=== PATIENT | female | born 1985 | race Caucasian/White ===

== ENCOUNTER → 2017-04-20 | Outpatient (CLI) | payer BC ==
[2016-04-20 12:50] LABS: Glucose 3 Hour, Gest 137 mg/dL
== END | disposition home or self-care (01) ==
LOC: LABWHC1 08:33
PROVIDERS: ATTEND Obstetrics & Gynecology
DX: O99.810 Abnormal glucose complicating pregnancy (principal)
CPT/HCPCS: 36415; 82951; 82952

== ENCOUNTER 2017-10-09 18:38 | Emergency (ER) | payer BC ==
[2017-10-09] MEDS ORDERED: SODIUM CHLORIDE 0.9% 1,000 ML IV STA (19:30)
[2017-10-09] MEDS ORDERED: KETOROLAC 30 MG/ML 1 ML VIAL IVP STA (19:30)
[2017-10-09] MEDS ORDERED: ONDANSETRON 4 MG/2 ML VIAL IVP STA (19:30)
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
[2017-10-09 19:44] LABS: Basophils # (A) 0.1 k/uL (0-0.2); Basophils % (A) 1 %; Eosinophils # (A) 0.2 k/uL (0-0.7); Eosinophils % (A) 1 %; HCT 40.5 % (34.0-46.0); HGB 13.1 gm/dL (11.4-16.0); Lymphocytes # (A) 3.3 k/uL (1.0-4.8); Lymphocytes % (A) 23 %; MCHC 32.3 g/dL (31.0-37.0); MCV 89.7 fL (80.0-100.0); Monocytes # (A) 0.7 k/uL (0-1.0); Monocytes % (A) 5 %; Neutrophils # (A) 9.9 k/uL (1.3-7.7); Neutrophils % (A) 69 %; Platelet Count 283 k/uL (150-450); RBC 4.52 m/uL (3.80-5.40); RDW 14.8 % (11.5-15.5); WBC 14.5 k/uL (3.8-10.6)
[2017-10-09 19:55] LABS: ALT 51 U/L (9-52); AST 33 U/L (14-36); Albumin 4.4 g/dL (3.5-5.0); Alkaline Phosphatase 104 U/L (38-126); Amylase 47 U/L (30-110); Anion Gap 15 mmol/L; Blood Urea Nitrogen 17 mg/dL (7-17); Carbon Dioxide 23 mmol/L (22-30); Chloride 105 mmol/L (98-107); Glucose 103 mg/dL (74-99); Lipase 165 U/L (23-300); Potassium 3.9 mmol/L (3.5-5.1); Sodium 143 mmol/L (137-145); Total Bilirubin 0.4 mg/dL (0.2-1.3); Total Protein 8.1 g/dL (6.3-8.2)
[2017-10-09 20:29] LABS: Appearance,Urine Clear (Clear); Bilirubin,Urine Negative (Negative); Blood,Urine Negative (Negative); Color,Urine Colorless; Glucose,Urine (UA) Negative (Negative); Ketones,Urine Negative (Negative); Protein,Urine Negative (Negative); Specific Gravity,Urine 1.034 (1.001-1.035)
[2017-10-09 20:30] LABS: Leukocyte Esterase,Urine Negative (Negative); Nitrite,Urine Negative (Negative); Urobilinogen,Urine 0.2 mg/dL (<2.0)
--- NOTE | 2017-10-09 21:16 | XR ---
EXAMINATION TYPE: XR abdomen 2V DATE OF EXAM: 10/09/2017 CLINICAL HISTORY: Right-sided abdominal pain. TECHNIQUE: Single supine KUB image of the abdomen is obtained. COMPARISON: None. FINDINGS: Scattered gas is seen in non-distended small bowel loops. Gas and fecal material is seen in non-distended colon. There is no visceromegaly, pneumoperitoneum, or abnormal calcification appr eciated. The lung bases are clear and the osseous structures are intact. IMPRESSION: Overall nonobstructive bowel gas pattern.
[2017-10-09 21:39] VITALS: BP 122/74; PULSE 100; RESP 16; TEMP 97.8
== END 2017-10-09 22:03 | disposition home or self-care (01) ==
LOC: EC 18:38
DX: K80.50 Calculus of bile duct without cholangitis or cholecystitis without obstruction (principal); Z87.891 Personal history of nicotine dependence
CPT/HCPCS: 36415; 80053; 82150; 83605; 83690; 85025; 81003; 81025; 87086; 74019; 99284; 96374; 96375; 96361; J2405; J1885

== ENCOUNTER → 2018-01-27 | Day surgery (SDC) | payer BC ==
[2018-01-24 15:23] VITALS: BMI 44.1
[~2018-01-27] MED LIST: BUPIVACAINE (PF) 0.25% 30 ML VIAL SQ ONE; DEXAMETHASONE SOD PHOSPHATE 10 MG/ML 1 ML VIAL IV ONE; GLYCOPYRROLATE 0.2 MG/ML 2 ML VIAL ONE; HYDROcodone/APAP 5-325MG 1 EACH TAB PO ONE; HYDROcodone/APAP 5-325MG 1 EACH TAB PO PRN; KETOROLAC 30 MG/ML 1 ML VIAL IVP ONE; LACTATED RINGERS 1,000 ML IV SCH; LIDOCAINE 1% 20 ML VIAL (10MG/ML) FOR IV START INTRADERMA ONE; LIDOCAINE 1% 20 ML VIAL (10MG/ML) FOR IV START INTRADERMA PRN; LIDOCAINE 1% INJ 10MG/ML (20 ML MDV) ONE; MIDAZOLAM 2 MG/2 ML VIAL IV PRN; MIDAZOLAM 2 MG/2 ML VIAL ONE; NALOXONE 0.4 MG/ML 1 ML VIAL IV PRN; NEOSTIGMINE 1 MG/ML 10 ML VIAL ONE; PROPOFOL 10 MG/ML 20 ML VIAL IV ONE; ROCURONIUM BROMIDE 10 MG/ML 10 ML VIAL IV ONE; SCOPOLAMINE 1.5MG/72HR PATCH TRANSDERM ONE; SUCCINYLCHOLINE CHLORIDE 100 MG/5 ML SYR IV ONE; ceFAZolin IN SWFI 2 GM/20 ML SYRINGE IVP ONE; fentaNYL (PF) 50 MCG/ML 2 ML AMP ONE
[2018-01-27 08:27] VITALS: RESP 16
[2018-01-27] MEDS: ONDANSETRON 4 MG/2 ML VIAL IVP ONE ×2 (08:56→10:57)
[2018-01-27] MEDS: HEPARIN SODIUM,PORCINE 5,000 UNIT/ML 1 ML VIAL SQ ONE ×2 (08:57→08:59)
[2018-01-27 10:40] VITALS: TEMP 96.9
--- NOTE | 2018-01-27 10:48 | P.OP ---
Date of Procedure: 01/27/18 Procedure(s) Performed: PREOPERATIVE DIAGNOSIS: Chronic cholecystitis POSTOPERATIVE DIAGNOSIS: Same PROCEDURE: Laparoscopic cholecystectomy SURGEON: Shaq EBL: Minimal see anesthesia record ANESTHESIA: Gen. COMPLICATIONS: None OPERATIVE PROCEDURE: The patient was brought and placed on the operating room table in the supine position. The patient was placed under general anesthesia at that time. The abdomen was prepped and draped in the usual sterile fashion. A small vertical infraumbilical incision was made. The patient had a small moderate-sized umbilical hernia that was left alone at this time. The fascia was grasped with the Patricio forceps. The fascia was retracted anteriorly. The Veress needle was advanced into the peritoneal cavity. The saline drop test was normal. Insufflation took place up to 15 mmHg. A 5 mm optical trocar was advanced and the peritoneal cavity. The abdominal cavity revealed loose flimsy adhesions scattered throughout. There were more dense adhesions present in the umbilical location. There was also some omentum present within the umbilical hernia sac. The trocar placement was in an area devoid of adhesions. Most of these adhesions in the upper abdomen were able to be lysed using blunt dissection. 2 additional 5 mm trochars were placed in the right upper quadrant under direct visualization. A 10 mm trocar was advanced into the epigastric incision site. The gallbladder was retracted superiorly and laterally. The peritoneum overlying the infundibulum was bluntly dissected. The patient's cystic duct was visualized. The junction between the cystic duct common and hepatic duct was identified. The cystic duct was then divided after placement of 3 10 mm clips on the patient's side and one on the specimen side. The cystic artery was identified and clipped as well. A small vessel was seen along the gallbladder fossa and clipped as well. The gallbladder was then removed from the liver bed using electrocautery. The gallbladder was then removed from the epigastric trocar site with an Endo Catch bag. The gallbladder fossa was irrigated with saline. There was no evidence of any bleeding or biliary drainage seen. The trochars were then removed. The fascia at the 10 millimeter site was closed using a [id number] 0 Vicryl stitch. The skin at all 4 sites was closed using a 4-0 Monocryl stitch. At the end of this procedure the sponge and needle counts were correct. DISPOSITION: Stable to the recovery room
[2018-01-27] MEDS: MORPHINE SULFATE 4 MG/ML SYRINGE IV PRN ×2 (11:07→11:12)
[2018-01-27 12:48] VITALS: BP 101/65; PULSE 88
== END ==
LOC: OR 07:21
PROVIDERS: ATTEND Surgery
DX: K80.10 Calculus of gallbladder with chronic cholecystitis without obstruction (principal); K42.9 Umbilical hernia without obstruction or gangrene; K66.0 Peritoneal adhesions (postprocedural) (postinfection); Z79.2 Long term (current) use of antibiotics; Z79.891 Long term (current) use of opiate analgesic; Z79.899 Other long term (current) drug therapy; I51.9 Heart disease, unspecified; M79.7 Fibromyalgia; Z87.442 Personal history of urinary calculi
CPT/HCPCS: 81025; 88304; 47562; J2250; J2270; J1644; J1100; J2710; J2405; J2001; J3010; J1885; J0330; J2704; J0690

== ENCOUNTER → 2018-02-08 | Outpatient (CLI) | payer BC ==
[2018-02-08 17:39] LABS: Basophils # (A) 0.1 k/uL (0-0.2); Basophils % (A) 1 %; Eosinophils # (A) 0.3 k/uL (0-0.7); Eosinophils % (A) 3 %; HCT 42.1 % (34.0-46.0); HGB 13.5 gm/dL (11.4-16.0); Lymphocytes # (A) 2.9 k/uL (1.0-4.8); Lymphocytes % (A) 28 %; MCH 28.8 pg (25.0-35.0); MCHC 32.1 g/dL (31.0-37.0); MCV 89.8 fL (80.0-100.0); Mean Platelet Volume 6.9; Monocytes # (A) 0.7 k/uL (0-1.0); Monocytes % (A) 6 %; Neutrophils # (A) 6.4 k/uL (1.3-7.7); Neutrophils % (A) 60 %; Platelet Count 277 k/uL (150-450); RBC 4.69 m/uL (3.80-5.40); WBC 10.6 k/uL (3.8-10.6)
[2018-02-08 18:06] LABS: ALT 470 U/L (9-52); AST 158 U/L (14-36); Albumin 4.4 g/dL (3.5-5.0); Alkaline Phosphatase 189 U/L (38-126); Anion Gap 16 mmol/L; Blood Urea Nitrogen 12 mg/dL (7-17); Calcium 9.9 mg/dL (8.4-10.2); Carbon Dioxide 22 mmol/L (22-30); Chloride 105 mmol/L (98-107); Glucose 89 mg/dL (74-99); Potassium 4.3 mmol/L (3.5-5.1); Sodium 143 mmol/L (137-145); Total Protein 7.7 g/dL (6.3-8.2)
== END | disposition home or self-care (01) ==
LOC: LABWHC1 17:07
PROVIDERS: ATTEND Surgery
DX: K81.0 Acute cholecystitis (principal)
CPT/HCPCS: 36415; 80053; 85025

== ENCOUNTER → 2018-02-14 | Outpatient (CLI) | payer BC ==
[2018-02-14 15:52] LABS: ALT 94 U/L (9-52); AST 31 U/L (14-36); Albumin 4.1 g/dL (3.5-5.0); Alkaline Phosphatase 98 U/L (38-126); Anion Gap 13 mmol/L; Blood Urea Nitrogen 13 mg/dL (7-17); Calcium 9.7 mg/dL (8.4-10.2); Carbon Dioxide 25 mmol/L (22-30); Chloride 106 mmol/L (98-107); Glucose 85 mg/dL (74-99); Potassium 4.4 mmol/L (3.5-5.1); Sodium 144 mmol/L (137-145); Total Bilirubin 0.5 mg/dL (0.2-1.3); Total Protein 7.1 g/dL (6.3-8.2)
== END | disposition home or self-care (01) ==
LOC: LABWHC1 14:58
PROVIDERS: ATTEND Surgery
DX: K80.50 Calculus of bile duct without cholangitis or cholecystitis without obstruction (principal)
CPT/HCPCS: 36415; 80053

== ENCOUNTER 2019-01-17 15:54 | Emergency (ER) | payer OTHER, BC ==
[2019-01-17 16:10] VITALS: RESP 18
[2019-01-17 16:47] LABS: Appearance,Urine Clear (Clear); Bilirubin,Urine Negative (Negative); Blood,Urine Negative (Negative); Color,Urine Colorless; Glucose,Urine (UA) Negative (Negative); Ketones,Urine Negative (Negative); Leukocyte Esterase,Urine Negative (Negative); Nitrite,Urine Negative (Negative); PH, Urine 5.5 (5.0-8.0); Protein,Urine Negative (Negative); Specific Gravity,Urine 1.002 (1.001-1.035); Urobilinogen,Urine <2.0 mg/dL (<2.0)
[2019-01-17] MEDS ORDERED: SODIUM CHLORIDE 0.9% 1,000 ML IV STA ×2 (16:51)
[2019-01-17] MEDS ORDERED: KETOROLAC 30 MG/ML 1 ML VIAL IVP STA (16:51)
[2019-01-17 17:23] LABS: Basophils # (A) 0.1 k/uL (0-0.2); Basophils % (A) 1 %; Eosinophils # (A) 0.2 k/uL (0-0.7); Eosinophils % (A) 2 %; HCT 39.5 % (34.0-46.0); HGB 12.6 gm/dL (11.4-16.0); Lymphocytes % (A) 32 %; MCH 28.2 pg (25.0-35.0); MCHC 31.9 g/dL (31.0-37.0); MCV 88.6 fL (80.0-100.0); Mean Platelet Volume 7.6; Monocytes # (A) 0.6 k/uL (0-1.0); Monocytes % (A) 5 %; Neutrophils # (A) 7.2 k/uL (1.3-7.7); Neutrophils % (A) 58 %; Platelet Count 323 k/uL (150-450); RBC 4.46 m/uL (3.80-5.40); RDW 13.4 % (11.5-15.5); WBC 12.5 k/uL (3.8-10.6)
[2019-01-17 17:39] LABS: ALT 38 U/L (9-52); AST 33 U/L (14-36); Albumin 4.5 g/dL (3.5-5.0); Alkaline Phosphatase 75 U/L (38-126); Amylase 46 U/L (30-110); Anion Gap 10 mmol/L; Blood Urea Nitrogen 11 mg/dL (7-17); Calcium 9.4 mg/dL (8.4-10.2); Carbon Dioxide 24 mmol/L (22-30); Chloride 106 mmol/L (98-107); Glucose 85 mg/dL (74-99); Lipase 107 U/L (23-300); Sodium 140 mmol/L (137-145); Total Bilirubin 0.6 mg/dL (0.2-1.3)
[2019-01-17 17:57] VITALS: BP 122/84; PULSE 64; TEMP 97.4
[2019-01-17] MEDS ORDERED: PHENAZOPYRIDINE 200 MG TAB PO STA (17:58)
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
--- NOTE | 2019-01-17 19:09 | CT ---
EXAMINATION TYPE: CT abdomen pelvis wo con DATE OF EXAM: 01/17/2019 COMPARISON: HISTORY: Pain and burning with urination. recent UTI CT DLP: 1151 mGycm Automated exposure control for dose reduction was used. TECHNIQUE: Helical acquisition of images was performed from the lung bases through the pelvis. FINDINGS: Within the limitations of noncontrast CT the following observations are made: LUNG BASES: No significant abnormality is appreciated. LIVER/GB: No significant abnormality is appreciated. PANCREAS: No significant abnormality is seen. SPLEEN: No significant abnormality is seen. ADRENALS: No significant abnormality is seen. KIDNEYS, URETERS, BLADDER: There is mild/moderate right-sided hydronephrosis with mild/moderate right hydroureter down to a 5 mm distal right ureteral calcification, located 2 cm proximal to the right u reterovesical junction. Right lower pole 2 mm nonobstructing calcification also noted. PERITONEAL CAVITY: Negative for pneumoperitoneum or peritoneal fluid. RETROPERITONEAL ADENOPATHY: None visualized REPRODUCTIVE ORGANS: No significant abnormality is seen PELVIC ADENOPATHY: None visualized. OSSEOUS STRUCTURES: No significant abnormality is seen. BOWEL: No significant abnormality is seen. IMPRESSION: RIGHT-SIDED MILD-MODERATE OBSTRUCTIVE UROPATHY.
[2019-01-17] MEDS ORDERED: Acetaminophen-Codeine 300-30mg TAB PO STA (19:20)
[2019-01-17] MEDS ORDERED: ACET/COD 300 MG/30 MG STARTER PACK 6 TAB BTL PO STA (19:20)
[2019-01-17] MEDS ORDERED: ONDANSETRON 4 MG/2 ML VIAL IVP STA (19:20)
== END 2019-01-17 19:30 | disposition home or self-care (01) ==
LOC: EC 15:54
DX: N20.1 Calculus of ureter (principal); Z87.440 Personal history of urinary (tract) infections; Z87.891 Personal history of nicotine dependence; Z90.49 Acquired absence of other specified parts of digestive tract
CPT/HCPCS: 99284; 96365; 96375 ×2; 96361 ×2; 36415; 80053; 82150; 83690; 85025; 81003; 81025; 87086; 74176; J2405; J0696; J1885

== ENCOUNTER → 2019-04-14 | Outpatient (CLI) | payer OTHER, BC ==
[2019-04-14 23:30] LABS: Progesterone 0.3 ng/mL
== END | disposition home or self-care (01) ==
LOC: RADXRMAIN 14:43
PROVIDERS: ATTEND Obstetrics & Gynecology
DX: N97.0 Female infertility associated with anovulation (principal)
CPT/HCPCS: 82627; 82670; 83001; 83002; 84144; 84146; 84402

== ENCOUNTER → 2019-05-02 | Outpatient (CLI) | payer OTHER, BC | END | disposition home or self-care (01) | LOC: LABMAIN 18:52 | PROVIDERS: ATTEND Obstetrics & Gynecology | DX: Z53.9 Procedure and treatment not carried out, unspecified reason (principal) ==

== ENCOUNTER → 2020-04-23 | Outpatient (CLI) | payer OTHER ==
[2020-04-23 19:41] LABS: T4, Free (Free Thyroxine) 1.2 ng/dL (0.80-1.80)
== END | disposition home or self-care (01) ==
LOC: LABWHC1 12:22
PROVIDERS: ATTEND Obstetrics & Gynecology
DX: Z13.29 Encounter for screening for other suspected endocrine disorder (principal)
CPT/HCPCS: 36415; 84439; 84443; 84479

== ENCOUNTER → 2020-08-01 | Outpatient (CLI) | payer OTHER | END | disposition home or self-care (01) | LOC: LABWHC1 16:17 | PROVIDERS: ATTEND Obstetrics & Gynecology | DX: N91.2 Amenorrhea, unspecified (principal); R10.2 Pelvic and perineal pain | CPT/HCPCS: 36415; 84702 ==

== ENCOUNTER 2020-08-03 10:29 | Emergency (ER) | payer OTHER ==
[2020-08-03 10:39] VITALS: TEMP 97.9
[2020-08-03] MEDS ORDERED: ONDANSETRON 4 MG/2 ML VIAL IVP STA (11:03)
[2020-08-03] MEDS ORDERED: MORPHINE SULFATE 4 MG/ML SYRINGE IV STA (11:03)
[2020-08-03] MEDS ORDERED: SODIUM CHLORIDE 0.9% 1,000 ML IV STA ×2 (11:03)
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
[2020-08-03 11:38] LABS: Appearance,Urine Clear (Clear); Bilirubin,Urine Negative (Negative); Blood,Urine Negative (Negative); Color,Urine Yellow; Glucose,Urine (UA) Negative (Negative); Ketones,Urine Negative (Negative); Leukocyte Esterase,Urine Negative (Negative); Nitrite,Urine Negative (Negative); PH, Urine 5.5 (5.0-8.0); Protein,Urine Negative (Negative); Specific Gravity,Urine 1.022 (1.001-1.035); Urobilinogen,Urine <2.0 mg/dL (<2.0)
[2020-08-03 11:42] LABS: Basophils # (A) 0.1 k/uL (0-0.2); Basophils % (A) 1 %; Eosinophils # (A) 0.4 k/uL (0-0.7); Eosinophils % (A) 3 %; HCT 42.9 % (34.0-46.0); HGB 14.3 gm/dL (11.4-16.0); Lymphocytes # (A) 3.2 k/uL (1.0-4.8); Lymphocytes % (A) 28 %; MCH 29.9 pg (25.0-35.0); MCHC 33.3 g/dL (31.0-37.0); MCV 89.8 fL (80.0-100.0); Mean Platelet Volume 7.6; Monocytes # (A) 0.6 k/uL (0-1.0); Monocytes % (A) 5 %; Neutrophils # (A) 7.1 k/uL (1.3-7.7); Neutrophils % (A) 61 %; Platelet Count 286 k/uL (150-450); RBC 4.78 m/uL (3.80-5.40); RDW 13.1 % (11.5-15.5); WBC 11.6 k/uL (3.8-10.6)
[2020-08-03 11:44] LABS: ALT 22 U/L (4-34); AST 23 U/L (14-36); African American GFR (CKD) >90 (>60 ml/min/1.73 sqM); Albumin 4.1 g/dL (3.5-5.0); Alkaline Phosphatase 64 U/L (38-126); Amylase 37 U/L (30-110); Anion Gap 7 mmol/L; Blood Urea Nitrogen 14 mg/dL (7-17); Calcium 9.3 mg/dL (8.4-10.2); Carbon Dioxide 23 mmol/L (22-30); Chloride 109 mmol/L (98-107); Glucose 97 mg/dL (74-99); Lipase 80 U/L (23-300); Non-African American GFR(CKD) >90 (>60 ml/min/1.73 sqM); Potassium 4.2 mmol/L (3.5-5.1); Sodium 139 mmol/L (137-145); Total Bilirubin 0.4 mg/dL (0.2-1.3); Total Protein 7.6 g/dL (6.3-8.2)
[2020-08-03 11:48] LABS: INR 0.9 (<1.2); Partial Thromboplastin Time 23.5 sec (22.0-30.0); Prothrombin Time 9.8 sec (9.0-12.0)
[2020-08-03 12:00] LABS: HCG,Quantitative Serum <2.4 mIU/mL
--- NOTE | 2020-08-03 13:02 | US ---
EXAMINATION TYPE: US renals and bladder DATE OF EXAM: 08/03/2020 COMPARISON: NONE CLINICAL HISTORY: Right pain. right flank pain, history of kidney stones EXAM MEASUREMENTS: Right Kidney: 11.2 x 5.3 x 4.7 cm Left Kidney: 12.2 x 5.6 x 4.6 cm *Technical limitations due to patient's body habitus and overlying bowel content Right Kidney: no evidence of hydronephrosis Left Kidney: no evidence of hydronephrosis Bladder: not fully distended Bilateral Jets seen: no There is no evidence for hydronephrosis at this point in time. No nephrolithiasis is seen. No luis felipe s are identified. The urinary bladder is anechoic. Bilateral ureteral jets are seen. IMPRESSION: No distinct abnormality appreciated.
--- NOTE | 2020-08-03 13:03 | US ---
EXAMINATION TYPE: US transvaginal DATE OF EXAM: 08/03/2020 COMPARISON: NONE CLINICAL HISTORY: Right pain. right pelvic pain TECHNIQUE: Transvaginal (TV). Date of LMP: 07/09/20 EXAM MEASUREMENTS: Uterus: 9.0 x 3.8 x 5.2 cm Endometrial Stripe: 0.9 cm Right Ovary: 4.8 x 4.2 x 4.4 cm Left Ovary: unable to visualize 1. Uterus: Anteverted Nabothian cysts 2. Endometrium: appears wnl 3. Right Ovary: cystic area = 3.7 x 3.6 x 3.8cm 4. Left Ovary: Obscured by overlying bowel gas Spectral, color and waveform doppler imaging shows good arterial and venous flow within the right o vary; there is no evidence for ovarian torsion. 5. Bilateral Adnexa: wnl 6. Posterior cul-de-sac: wnl IMPRESSION: Right ovarian cyst may reflect functional ovarian cyst. Normal blood flow is identified.
[2020-08-03 13:29] VITALS: BP 114/72; PULSE 78; RESP 18
== END 2020-08-03 13:29 | disposition home or self-care (01) ==
LOC: EC 10:29
DX: N83.201 Unspecified ovarian cyst, right side (principal); Z90.49 Acquired absence of other specified parts of digestive tract; Z32.02 Encounter for pregnancy test, result negative
CPT/HCPCS: 36415; 80053; 82150; 83690; 85025; 85610; 85730; 81003; 84702; 93976; 76830; 76770; 99285; 96374; 96375; 96361 ×2; J2270; J2405

== ENCOUNTER 2020-08-14 18:34 | Inpatient (IN) | payer OTHER ==
[2020-08-14] MEDS ORDERED: ACETAMINOPHEN TAB 500 MG TAB PO STA (18:56)
[2020-08-14] MEDS ORDERED: ALBUTEROL HFA INHALER INHALATION STA (18:56)
[2020-08-14] MEDS ORDERED: SODIUM CHLORIDE 0.9% 1,000 ML IV STA (18:56)
[2020-08-14] MEDS ORDERED: IBUPROFEN 800 MG TAB PO STA (18:56)
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
[2020-08-14 19:31] LABS: Basophils # (A) 0.1 k/uL (0-0.2); Basophils % (A) 1 %; Eosinophils % (A) 1 %; HCT 43.5 % (34.0-46.0); HGB 13.8 gm/dL (11.4-16.0); Lymphocytes # (A) 1.6 k/uL (1.0-4.8); Lymphocytes % (A) 25 %; MCH 28.2 pg (25.0-35.0); MCHC 31.7 g/dL (31.0-37.0); MCV 88.8 fL (80.0-100.0); Mean Platelet Volume 7.8; Monocytes # (A) 0.4 k/uL (0-1.0); Monocytes % (A) 6 %; Neutrophils % (A) 65 %; Platelet Count 192 k/uL (150-450); RDW 13.2 % (11.5-15.5); WBC 6.2 k/uL (3.8-10.6)
--- NOTE | 2020-08-14 19:34 | XR ---
EXAMINATION TYPE: XR chest 1V portable DATE OF EXAM: 08/14/2020 COMPARISON: Chest x-ray July 30, 2016 HISTORY: Shortness of breath, congestion, and fever. Suspected covid 19 pneumonia. TECHNIQUE: Single AP portable frontal upright view of the chest is obtained. FINDINGS: Low lung volumes are redemonstrated. There is no definitive suspicious new focal air space opacity, pleural effusion, or pneumothorax seen. The cardiac silhouette size is stable and mildly en larged. The osseous structures are intact. IMPRESSION: Low lung volumes and mild cardiomegaly without new acute infiltrate clearly seen.
[2020-08-14 20:07] LABS: ALT 40 U/L (4-34); AST 49 U/L (14-36); African American GFR (CKD) >90 (>60 ml/min/1.73 sqM); Albumin 4.2 g/dL (3.5-5.0); Alkaline Phosphatase 62 U/L (38-126); Anion Gap 10 mmol/L; Blood Urea Nitrogen 12 mg/dL (7-17); C Reactive Protein 15.5 mg/L (<10.0); Calcium 8.8 mg/dL (8.4-10.2); Carbon Dioxide 22 mmol/L (22-30); Chloride 107 mmol/L (98-107); Glucose 117 mg/dL (74-99); LDH 631 U/L (313-618); Magnesium 1.7 mg/dL (1.6-2.3); Non-African American GFR(CKD) >90 (>60 ml/min/1.73 sqM); Potassium 3.7 mmol/L (3.5-5.1); Sodium 139 mmol/L (137-145); Total Bilirubin 0.4 mg/dL (0.2-1.3); Total Protein 7.8 g/dL (6.3-8.2)
[2020-08-14] MEDS ORDERED: SODIUM CHLORIDE 0.9% 1,000 ML IV ONE (21:36)
[2020-08-14] MEDS: ACETAMINOPHEN TAB 500 MG TAB PO PRN (22:04)
[2020-08-15] MEDS: ACETAMINOPHEN TAB 500 MG TAB PO PRN ×3 (06:21→22:24)
[2020-08-15] MEDS: ENOXAPARIN 40 MG/0.4 ML SYRINGE SQ SCH (08:04)
[2020-08-15 09:14] LABS: Ferritin 254.8 ng/mL (10.0-291.0)
[2020-08-15] MEDS: LEVOTHYROXINE 50 MCG TAB PO SCH (11:43)
[2020-08-15] MEDS ORDERED: REMDESIVIR 200 MG in SODIUM CHLORIDE 0.9% 250 ML IVPB ONE (17:00)
[2020-08-15] MEDS: ZINC SULFATE 220 MG CAP PO SCH (17:01)
[2020-08-15] MEDS: DEXAMETHASONE SOD PHOSPHATE 10 MG/ML 1 ML VIAL IV SCH (17:01)
[2020-08-15] MEDS: guaiFENesin-DM 100-10MG/5ML 10 ML CUP PO PRN (17:04)
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
[2020-08-16] MEDS: guaiFENesin-DM 100-10MG/5ML 10 ML CUP PO PRN ×3 (05:53→21:00)
[2020-08-16] MEDS: LEVOTHYROXINE 50 MCG TAB PO SCH (05:53)
--- NOTE | 2020-08-16 07:45 | XR ---
EXAMINATION TYPE: XR chest 1V portable DATE OF EXAM: 08/16/2020 CLINICAL HISTORY: Difficulty breathing progress study. Suspected covid pneumonia. TECHNIQUE: Single AP portable upright view of the chest is obtained. COMPARISON: Chest x-ray from 2 days earlier FINDINGS: Persistent low lung volumes with developing peripheral opacities bilaterally. No pleural e ffusion or pneumothorax seen bilaterally. Cardiac silhouette size stable and mildly enlarged. Osseous structures are intact. IMPRESSION: Low lung volumes with developing bilateral peripheral acute infiltrates correlates with h istory of covid 19 infection.
[2020-08-16] MEDS: ZINC SULFATE 220 MG CAP PO SCH (07:53)
[2020-08-16] MEDS: ENOXAPARIN 40 MG/0.4 ML SYRINGE SQ SCH (07:53)
[2020-08-16] MEDS: DEXAMETHASONE SOD PHOSPHATE 10 MG/ML 1 ML VIAL IV SCH (07:53)
[2020-08-16 07:59] LABS: Basophils # (A) 0.1 k/uL (0-0.2); Basophils % (A) 1 %; Eosinophils % (A) 0 %; HCT 40.3 % (34.0-46.0); HGB 13.1 gm/dL (11.4-16.0); Lymphocytes % (A) 18 %; MCH 28.8 pg (25.0-35.0); MCHC 32.4 g/dL (31.0-37.0); Mean Platelet Volume 7.9; Monocytes # (A) 0.3 k/uL (0-1.0); Monocytes % (A) 6 %; Neutrophils % (A) 72 %; Platelet Count 188 k/uL (150-450); RBC 4.52 m/uL (3.80-5.40); RDW 12.9 % (11.5-15.5); WBC 5.5 k/uL (3.8-10.6)
[2020-08-16 13:45] LABS: African American GFR (CKD) 129.2 (60.0-200.0); Albumin 4.1 g/dL (3.80-4.90); Albumin/Globulin Ratio 1.46 (1.60-3.17); Anion Gap 8.9 mmol/L (4.00-12.00); C Reactive Protein 2.8 mg/dL (0.0-0.8); Calcium 8.7 mg/dL (8.7-10.3); Carbon Dioxide 24.1 mmol/L (21.6-31.8); Globulin 2.8 g/dL (1.6-3.3); Non-African American GFR(CKD) 111.5 (60.0-200.0); Potassium 4.2 mmol/L (3.5-5.5); Total Bilirubin 0.2 mg/dL (0.3-1.2); Total Protein 6.9 g/dL (6.2-8.2)
[2020-08-16] MEDS: REMDESIVIR 100 MG in SODIUM CHLORIDE 0.9% 250 ML IVPB SCH (16:41)
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
--- NOTE | 2020-08-17 05:10 | PN ---
PROGRESS NOTE DATE OF SERVICE: 08/16/2020 REASON FOR FOLLOWUP: Acute COVID-19 infection. INTERVAL HISTORY: The patient is currently afebrile. The patient has been breathing comfortably on room air. The patient denies having any chest pain or shortness of breath. Minimal cough. No nausea, vomiting, abdominal pain and is overall feeling much better. PHYSICAL EXAMINATION: Blood pressure 123/72, pulse of 80, temperature of 97.8. She is 96% on room air. Description is a middle-aged female up in the bed in no distress. Respiratory system: Unlabored breathing, decreased intensity of breath sounds, no wheeze. Heart S1, S2. Regular rate and rhythm. Abdomen is soft, no tenderness. LABS: Hemoglobin 13.1, white count of 5.5. D-dimer is 0.41 and LDH is down to 304. CRP down to 2.8. DIAGNOSTIC IMPRESSION AND PLAN: Patient with acute COVID-19 infection in this patient who has shown overall clinical improvement. She is currently off oxygen. The patient to continue with dexamethasone, Lovenox and remdesivir. remans to be off oxygen and is doing well, may be able to go home. MMODL / IJN: [id number] /
[2020-08-17] MEDS: LEVOTHYROXINE 50 MCG TAB PO SCH (05:41)
[2020-08-17 07:04] LABS: Basophils # (A) 0.1 k/uL (0-0.2); Basophils % (A) 1 %; Eosinophils % (A) 0 %; HCT 40.1 % (34.0-46.0); HGB 13.2 gm/dL (11.4-16.0); Lymphocytes # (A) 2.1 k/uL (1.0-4.8); Lymphocytes % (A) 22 %; MCH 29.5 pg (25.0-35.0); MCV 89.5 fL (80.0-100.0); Mean Platelet Volume 8.1; Monocytes # (A) 0.8 k/uL (0-1.0); Monocytes % (A) 8 %; Neutrophils % (A) 66 %; Platelet Count 244 k/uL (150-450); RBC 4.48 m/uL (3.80-5.40); RDW 13.1 % (11.5-15.5); WBC 9.2 k/uL (3.8-10.6)
[2020-08-17] MEDS: guaiFENesin-DM 100-10MG/5ML 10 ML CUP PO PRN (07:56)
[2020-08-17] MEDS: DEXAMETHASONE SOD PHOSPHATE 10 MG/ML 1 ML VIAL IV SCH (07:57)
[2020-08-17] MEDS: ZINC SULFATE 220 MG CAP PO SCH (07:57)
[2020-08-17] MEDS: ENOXAPARIN 40 MG/0.4 ML SYRINGE SQ SCH (07:57)
[2020-08-17] MEDS ORDERED: ARTIFICIAL TEARS-HYPROMELLOSE DROPS 15 ML BTL BOTH EYES PRN (08:03)
[2020-08-17 09:50] LABS: African American GFR (CKD) 129.2 (60.0-200.0); Anion Gap 6.1 mmol/L (4.00-12.00); BUN/Creat Ratio 22.86 Ratio (12.00-20.00); Calcium 8.9 mg/dL (8.7-10.3); Carbon Dioxide 27.9 mmol/L (21.6-31.8); Non-African American GFR(CKD) 111.5 (60.0-200.0); Potassium 4.1 mmol/L (3.5-5.5)
[2020-08-17] MEDS: REMDESIVIR 100 MG in SODIUM CHLORIDE 0.9% 250 ML IVPB SCH (16:55)
--- NOTE | 2020-08-17 17:41 | P.PN ---
Subjective Progress Note Date: 08/16/20 Principal diagnosis: Acute COVID-19 viral infection 08/16/2020 Patient is seen and evaluated in room at bedside; resting comfortably in bed; denies any chest pain; reports shortness of breath with activity and cough Vital signs remained stable with a temperature of 97 Lab review shows a white blood count of 5.5, hemoglobin 13.1, d-dimer of 0.41 and downward trend; CRP is improved to 2.8 Patient has been started on Remdesivir and dexamethasone; continue with Lovenox and vitamins; does show overall improvement; plan to discharge once therapy is completed Objective - Vital Signs Vital signs: Vital Signs Temp 97.8 F 08/16/20 14:00 Pulse 88 08/16/20 14:00 Resp 16 08/16/20 14:00 BP 123/78 08/16/20 14:00 Pulse Ox 93 L 08/16/20 14:00 Intake & Output 08/16/20 08/16/20 08/17/20 06:59 18:59 06:59 Intake Total 200 Balance 200 Intake: Oral 200 Other: Voiding Method Toilet Toilet # Voids 1 # Bowel Movements 1 - Exam GENERAL DESCRIPTION: Middle-aged female lying in bed, no distress. No tachypnea or accessory muscle of respiration use. HEENT: Shows Pallor , no scleral icterus. Oral mucous membrane is dry. No pharyngeal erythema or thrush NECK: Trachea central, no thyromegaly. LUNGS: Unlabored breathing. Coarse present at the bases bilaterally. No wheeze or crackle. HEART: S1, S2, regular rate and rhythm. No loud murmur ABDOMEN: Soft, no tenderness , guarding or rigidity, no organomegaly EXTREMITIES: No edema of feet. SKIN: No rash, no masses palpable. NEUROLOGICAL: The patient is awake, alert, oriented x3, mood and affect normal. - Labs CBC & Chem 7: 08/17/20 06:35 08/17/20 06:35 Labs: Abnormal Lab Results - Last 24 Hours (Table) 08/16/20 Range/Units 07:11 Glucose 137 H (70-110) mg/dL Total Bilirubin 0.2 L (0.3-1.2) mg/dL AST 44 H (13-35) U/L ALT 51 H (8-44) U/L Lactate Dehydrogenase 304 H (120-246) U/L C-Reactive Protein 2.8 H (0.0-0.8) mg/dL Albumin/Globulin Ratio 1.46 L (1.60-3.17) g/dL Microbiology - Last 24 Hours (Table) 08/14/20 19:08 Blood Culture - Preliminary Blood No Growth after 24 hours Assessment and Plan Assessment: 1. COVID 19 viral infection - Patient has been started on REM; pharmacy is consulting; patient remains on dexamethasone, Lovenox and zinc sulfate; placed on droplet and respiratory isolation - ID on board and recommending to follow culture results and adjust medications as needed 2. Hypothyroidism; levothyroxin 50 MCG daily 3. Obesity; counseling done DVT prophylaxis; subcu Lovenox CODE STATUS; full code
--- NOTE | 2020-08-17 18:02 | PN ---
PROGRESS NOTE DATE OF SERVICE: 08/17/2020 REASON FOR FOLLOWUP: Acute COVID-19 pneumonia. INTERVAL HISTORY: The patient is currently afebrile. Patient is breathing better. Still sats are at around 93% on room air. Denies any chest pain. Minimal cough. No abdominal pain. No diarrhea. PHYSICAL EXAMINATION: Blood pressure 122/70 with a pulse of 81, temperature 98.1. She is 93% on room air. General description is a middle-aged female up in the bed in no distress. Respiratory system: Unlabored breathing, decreased intensity of breath sounds with no wheeze. Heart S1, S2. Regular rate and rhythm. Abdomen soft, no tenderness. LABS: Hemoglobin 13.1, white count 9.2, creatinine 0.7. Blood culture negative. DIAGNOSTIC IMPRESSION AND PLAN: Patient with acute COVID-19 pneumonia in this patient currently on Remdesivir, Decadron. To continue. Still mildly hypoxic and and monitor clinical course. MMODL / IJN: [id number] /
[2020-08-18 06:55] LABS: Basophils # (A) 0.1 k/uL (0-0.2); Basophils % (A) 1 %; Eosinophils % (A) 0 %; HCT 40.4 % (34.0-46.0); HGB 13.1 gm/dL (11.4-16.0); Lymphocytes # (A) 2.4 k/uL (1.0-4.8); Lymphocytes % (A) 23 %; MCH 29.1 pg (25.0-35.0); MCHC 32.5 g/dL (31.0-37.0); MCV 89.6 fL (80.0-100.0); Mean Platelet Volume 8.6; Monocytes # (A) 0.6 k/uL (0-1.0); Monocytes % (A) 6 %; Neutrophils # (A) 6.9 k/uL (1.3-7.7); Neutrophils % (A) 68 %; Platelet Count 260 k/uL (150-450); RBC 4.51 m/uL (3.80-5.40); RDW 12.9 % (11.5-15.5); WBC 10.2 k/uL (3.8-10.6)
[2020-08-18] MEDS: DEXAMETHASONE SOD PHOSPHATE 10 MG/ML 1 ML VIAL IV SCH (09:17)
[2020-08-18] MEDS: ENOXAPARIN 40 MG/0.4 ML SYRINGE SQ SCH (09:17)
[2020-08-18] MEDS: ZINC SULFATE 220 MG CAP PO SCH (09:17)
[2020-08-18] MEDS: LEVOTHYROXINE 50 MCG TAB PO SCH (09:17)
[2020-08-18 10:16] VITALS: RESP 18
[2020-08-18 12:27] LABS: African American GFR (CKD) 129.2 (60.0-200.0); Anion Gap 8.2 mmol/L (4.00-12.00); BUN/Creat Ratio 22.86 Ratio (12.00-20.00); Calcium 8.7 mg/dL (8.7-10.3); Carbon Dioxide 26.8 mmol/L (21.6-31.8); Non-African American GFR(CKD) 111.5 (60.0-200.0); Potassium 3.9 mmol/L (3.5-5.5)
[2020-08-18 13:52] VITALS: BP 97/65; PULSE 67; TEMP 98
--- NOTE | 2020-08-18 15:24 | P.PN ---
Subjective Progress Note Date: 08/18/20 Principal diagnosis: Covid pneumonia This is a continue progress note On a 35-year-old white female with Covid pneumonia. She is doing well on Remdesivir. No voiding difficulties. No significant nausea, vomiting or diarrhea. Objective - Vital Signs Vital signs: Vital Signs Temp 98.0 F 08/18/20 13:51 Pulse 67 08/18/20 13:51 Resp 18 08/18/20 13:51 BP 97/65 08/18/20 13:51 Pulse Ox 95 08/18/20 13:51 Intake & Output 08/17/20 08/18/20 08/18/20 18:59 06:59 18:59 Intake Total 982 340 Balance 982 340 Intake: Intake, IV Titration 250 Amount Remdesivir (Eua) 100 mg 250 In Sodium Chloride 0.9% 250 ml @ 250 mls/hr IVPB Q24H [facility] Rx#:[id number] Oral 732 340 Other: Voiding Method Toilet Toilet # Voids 1 - Constitutional General appearance: Present: cooperative, no acute distress. Absent: disheveled - EENT Eyes: Absent: abnormal pupil - Neck Neck: Absent: lymphadenopathy - Respiratory Respiratory: bilateral: CTA - Cardiovascular Rhythm: regular Heart sounds: normal: S1, S2 Abnormal Heart Sounds: Absent: S3 Gallop, S4 Gallop - Gastrointestinal General gastrointestinal: Present: soft. Absent: tenderness - Musculoskeletal Musculoskeletal: Absent: gait normal - Psychiatric Psychiatric: Present: A&O x's 3 - Labs CBC & Chem 7: 08/18/20 05:52 08/18/20 05:52 Labs: Abnormal Lab Results - Last 24 Hours (Table) 08/18/20 Range/Units 05:52 BUN/Creatinine Ratio 22.86 H (12.00-20.00) Ratio Microbiology - Last 24 Hours (Table) 08/14/20 19:08 Blood Culture - Preliminary Blood No Growth after 72 hours Assessment and Plan (1) Coronavirus infection Current Visit: Yes Status: Acute Code(s): B34.2 - CORONAVIRUS INFECTION, UNSPECIFIED SNOMED Code(s): 716202371 (2) Fever Current Visit: No Status: Acute Code(s): R50.9 - FEVER, UNSPECIFIED SNOMED Code(s): 782082343 Plan: I would continue current regimen of treatment. She is improving tremendously. Anticipate discharge in a.m. Check CBC and CMP in the a.m.
[2020-08-18] MEDS: REMDESIVIR 100 MG in SODIUM CHLORIDE 0.9% 250 ML IVPB SCH (15:40)
[2020-08-18 16:02] LABS: Basophils # (A) 0.2 k/uL (0-0.2); Basophils % (A) 2 %; Eosinophils # (A) 0.2 k/uL (0-0.7); Eosinophils % (A) 2 %; HCT 39.7 % (34.0-46.0); HGB 13.1 gm/dL (11.4-16.0); Lymphocytes # (A) 1.5 k/uL (1.0-4.8); Lymphocytes % (A) 14 %; MCH 29.2 pg (25.0-35.0); MCHC 32.9 g/dL (31.0-37.0); MCV 88.6 fL (80.0-100.0); Monocytes # (A) 0.4 k/uL (0-1.0); Monocytes % (A) 4 %; Neutrophils # (A) 8.5 k/uL (1.3-7.7); Neutrophils % (A) 77 %; Platelet Count 265 k/uL (150-450); RBC 4.48 m/uL (3.80-5.40); RDW 12.9 % (11.5-15.5)
--- NOTE | 2020-08-18 16:09 | PN ---
PROGRESS NOTE DATE OF SERVICE: . REASON FOR FOLLOWUP: Acute COVID-19 pneumonia. INTERVAL HISTORY: The patient is currently afebrile. The patient is breathing more comfortably. Denies having any chest pain or cough. No nausea, no vomiting, no diarrhea. O2 saturation 95%-96% on room air. PHYSICAL EXAMINATION: Blood pressure is 97/55, O2 saturation is 95%. General description is a middle-aged female up in the in no distress. RESPIRATORY SYSTEM: Unlabored breathing, decreased breath sounds, no wheeze. HEART: S1, S2. Regular rate and rhythm. ABDOMEN: Soft, no tenderness. LABS: Hemoglobin is 10.2, white count is 14.2, creatinine 0.7. IMPRESSION/PLAN: Acute COVID-19 pneumonia. She will get a dose of Remdesivir. She will be able to go home on oral dexamethasone and . She will receive close outpatient followup. MMODL / IJN: [id number] /
--- NOTE | 2020-08-18 16:17 | P.DS ---
Providers Date of admission: 08/14/20 21:37 Attending physician: Nam Murray Consults: 08/14/20 21:36 Consult Physician Routine Consulting Provider: Camacho Mason Consult Reason/Comments: covid Do you want consulting provider notified?: Yes Primary care physician: Nam Murray - Discharge Diagnosis(es) (1) Coronavirus infection Current Visit: Yes Status: Acute (2) Fever Current Visit: No Status: Acute Hospital Course: The patient is here because of Covid 19/coronavirus infection. The patient did quite well with given antiviral treatment. The patient will be discharged in stable condition on steroid taper Patient Condition at Discharge: Good Plan - Discharge Summary New Discharge Prescriptions: New dexAMETHasone [Hexadrol] 2 mg PO DAILY #18 tablet Zinc Sulfate [Orazinc] 220 mg PO DAILY #30 cap guaiFENesin-DM 100-10MG/5ML [Robitussin DM] 10 ml PO Q6H PRN ml PRN Reason: Cough Continue Levothyroxine Sodium [Synthroid] 50 mcg PO DAILY clomiPHENE CITRATE 50 mg PO DIRECTED Discharge Medication List Levothyroxine Sodium [Synthroid] 50 mcg PO DAILY 08/03/20 [History] clomiPHENE CITRATE 50 mg PO DIRECTED 08/14/20 [History] Zinc Sulfate [Orazinc] 220 mg PO DAILY #30 cap 08/18/20 [Rx] dexAMETHasone [Hexadrol] 2 mg PO DAILY #18 tablet 08/18/20 [Rx] guaiFENesin-DM 100-10MG/5ML [Robitussin DM] 10 ml PO Q6H PRN ml 08/18/20 [Rx] Follow up Appointment(s)/Referral(s): Nam Murray MD [Primary Care Provider] - 1 Week Discharge Disposition: HOME SELF-CARE
== END 2020-08-18 17:25 | disposition home or self-care (01) | DRG 177 ==
LOC: EC 18:34 → 4SSUR 21:37
PROVIDERS: ADMIT Family Medicine; ATTEND Family Medicine
PROC: XW033E5 Introduction of Remdesivir Anti-infective into Peripheral Vein, Percutaneous Approach, New Technology Group 5 (ICD-10-PCS; principal; 2020-08-14)
DX: U07.1 COVID-19 (principal); J12.89 Other viral pneumonia; Z68.42 Body mass index [BMI] 45.0-49.9, adult; R09.02 Hypoxemia; E03.9 Hypothyroidism, unspecified; E66.9 Obesity, unspecified; Z71.3 Dietary counseling and surveillance; Z79.890 Hormone replacement therapy; Z82.49 Family history of ischemic heart disease and other diseases of the circulatory system; Z83.3 Family history of diabetes mellitus; Z87.891 Personal history of nicotine dependence; Z90.49 Acquired absence of other specified parts of digestive tract
CPT/HCPCS: 36415; 71045; 80048; 80053; 82728; 83605; 83615; 83735; 84145; 85025; 85379; 86140; 87040; 93005; 94640; 96360; 99285

== ENCOUNTER 2021-07-25 12:25 | Emergency (ER) | payer OTHER ==
[2021-07-25 12:42] VITALS: RESP 20; TEMP 98
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
--- NOTE | 2021-07-25 13:53 | XR ---
Left shoulder. HISTORY: Pain. COMPARISON: None. TECHNIQUE: 3 views of left shoulder were obtained. FINDINGS: There is no fracture, dislocation, intraosseous or intra-articular abnormality. There is no radiopaq ue foreign body or abnormal soft tissue calcification. IMPRESSION: No significant abnormality seen.
[2021-07-25] MEDS ORDERED: HYDROcodone/APAP 5-325MG 1 EACH TAB PO STA (14:03)
[2021-07-25 14:54] VITALS: BP 142/74; PULSE 88
== END 2021-07-25 14:49 | disposition home or self-care (01) ==
LOC: EC 12:25
DX: M25.512 Pain in left shoulder (principal); Z87.891 Personal history of nicotine dependence
CPT/HCPCS: 81025; 99283

== ENCOUNTER → 2022-03-17 | Outpatient (CLI) | payer OTHER ==
[2022-03-17 18:13] LABS: MCV 90.3 fL (80.0-97.0); Mean Platelet Volume 10.9 fL (9.5-12.2); NRBC Per 100 WBC 0 /100 WBCS (0.0-0.0); Platelet Count 321 X 10*3/uL (140-440); RBC 4.65 X 10*6/uL (4.10-5.20); RDW 13.1 % (11.5-14.5); WBC 12.41 X 10*3/uL (4.50-10.00)
[2022-03-17 18:29] LABS: Prolactin 13.3 ng/mL (2.800-29.200)
[2022-03-17 18:40] LABS: African American GFR (CKD) 128.3 (60.0-200.0); Albumin 4.3 g/dL (3.8-4.9); Albumin/Globulin Ratio 1.3 (1.60-3.17); Anion Gap 11.6 mmol/L (10.00-18.00); BUN/Creat Ratio 17.57 Ratio (12.00-20.00); Blood Urea Nitrogen 12.3 mg/dL (9.0-27.0); Calcium 9.3 mg/dL (8.7-10.3); Carbon Dioxide 24.4 mmol/L (20.0-27.5); Globulin 3.3 g/dL (1.6-3.3); Non-African American GFR(CKD) 110.7 (60.0-200.0); Potassium 4.2 mmol/L (3.5-5.5); T4, Free (Free Thyroxine) 1.41 ng/dL (0.800-1.800); Total Bilirubin 0.4 mg/dL (0.30-1.20); Total Protein 7.6 g/dL (6.2-8.2)
[2022-03-17 19:18] LABS: ACTH 24.6 pg/mL (0.00-45.99)
== END | disposition home or self-care (01) ==
LOC: LABWHC1 14:16
PROVIDERS: ATTEND Internal Medicine Endocrinology, Diabetes & Metabolism
DX: R53.83 Other fatigue (principal)
CPT/HCPCS: 36415; 80053; 82024; 82533; 82607; 84146; 84439; 84443; 84481; 85027; 86376

== ENCOUNTER → 2022-04-26 | Outpatient (CLI) | payer OTHER ==
[2022-04-26 17:54] LABS: HCT 39.7 % (37.2-46.3); HGB 12.4 g/dL (12.0-15.0); MCH 28.5 pg (27.0-32.0); MCHC 31.2 g/dL (32.0-37.0); MCV 91.3 fL (80.0-97.0); Mean Platelet Volume 11.6 fL (9.5-12.2); NRBC Per 100 WBC 0 /100 WBCS (0.0-0.0); Platelet Count 307 X 10*3/uL (140-440); RBC 4.35 X 10*6/uL (4.10-5.20); RDW 13.3 % (11.5-14.5); WBC 10.52 X 10*3/uL (4.50-10.00)
[2022-04-26 18:53] LABS: ALT 21 U/L (8-44); AST 17 U/L (13-35); African American GFR (CKD) 121.5 (60.0-200.0); Albumin 4.1 g/dL (3.8-4.9); Albumin/Globulin Ratio 1.37 (1.60-3.17); Alkaline Phosphatase 69 U/L (41-126); BUN/Creat Ratio 15.85 Ratio (12.00-20.00); Blood Urea Nitrogen 11.6 mg/dL (9.0-27.0); Calcium 9.3 mg/dL (8.7-10.3); Carbon Dioxide 24.9 mmol/L (20.0-27.5); Chloride 105 mmol/L (96-109); Glucose 97 mg/dL (70-110); Non-African American GFR(CKD) 104.9 (60.0-200.0); Potassium 4.4 mmol/L (3.5-5.5); Sodium 139 mmol/L (135-145); Total Protein 7.1 g/dL (6.2-8.2)
[2022-04-26 23:15] LABS: ACTH 22.9 pg/mL (0.00-45.99)
== END | disposition home or self-care (01) ==
LOC: LABWHC1 11:51
PROVIDERS: ATTEND Internal Medicine Endocrinology, Diabetes & Metabolism
DX: R53.83 Other fatigue (principal)
CPT/HCPCS: 36415; 80053; 82024; 82533; 82607; 84146; 84443; 84480; 85027; 86376

== ENCOUNTER → 2022-06-04 | Outpatient (CLI) | payer OTHER | END | disposition home or self-care (01) | LOC: LABWHC1 16:11 | PROVIDERS: ATTEND Internal Medicine Endocrinology, Diabetes & Metabolism | DX: E03.8 Other specified hypothyroidism (principal) | CPT/HCPCS: 36415; 84443 ==

== ENCOUNTER → 2022-08-11 | Outpatient (CLI) | payer OTHER | END | disposition home or self-care (01) | LOC: LABWHC1 12:55 | PROVIDERS: ATTEND Internal Medicine Endocrinology, Diabetes & Metabolism | DX: E03.8 Other specified hypothyroidism (principal) | CPT/HCPCS: 36415; 84443 ==

== ENCOUNTER → 2022-09-25 | Outpatient (CLI) | payer OTHER ==
--- NOTE | 2022-09-25 08:33 | CT ---
EXAMINATION TYPE: CT abdomen pelvis wo con DATE OF EXAM: 09/25/2022 HISTORY: Calculus of kidney, frequency of urination CT DLP: 2841.3 mGycm. Automated Exposure Control for Dose Reduction was Utilized. TECHNIQUE: CT scan of the abdomen and pelvis is performed without oral or IV contrast. COMPARISON: CT abdomen and pelvis January 17, 2019 FINDINGS: Within the limitations of a non-contrast study, the following observations are made. LUNG BASES: No significant abnormality is appreciated. LIVER/GB: Liver is heterogeneously hypodense suggesting diffuse fatty infiltration. Cholecystectomy c lips are redemonstrated. PANCREAS: No significant abnormality is seen. SPLEEN: No significant abnormality is seen. ADRENALS: No significant abnormality is seen. KIDNEYS: There is 2 mm nonobstructing calculus lower pole left kidney coronal image 69. No right-side d nephrolithiasis. No hydronephrosis seen bilaterally. No intraluminal calculi in the bladder. There is persistent distal right ureter calculus axial image 148 measuring 6 mm in size right before UVJ, i f same stone as prior study has only minimally moved since prior. BOWEL: With normal-appearing appendix from cecum. No suspicious small or large bowel dilatation.. GENITAL ORGANS: Anteverted uterus. LYMPH NODES: No greater than 1cm abdominal or pelvic lymph nodes are appreciated. Prominent but subce ntimeter lymph nodes along the right ureter for reference axial image 107 is unchanged from prior kasey dy. Prominent but subcentimeter iliac chain and groin lymph nodes bilaterally are stable. OSSEOUS STRUCTURES: No significant abnormality is seen. OTHER: No significant additional abnormality is seen. IMPRESSION: There is 6 mm distal right ureter calculus redemonstrated without significant hydronephro sis.
== END | disposition home or self-care (01) ==
LOC: RADCTMAIN 07:48
PROVIDERS: ATTEND Family Medicine
DX: N20.2 Calculus of kidney with calculus of ureter (principal); R35.0 Frequency of micturition
CPT/HCPCS: 74176

== ENCOUNTER 2022-10-06 09:01 | Day surgery (SDC) | payer OTHER ==
[2022-10-05 10:11] VITALS: BMI 51.7
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
[~2022-10-06 09:01] MED LIST changes: +AMPICILLIN 1,000 MG in SODIUM CHLORIDE 0.9% 50 ML IVPB PRN; -BUPIVACAINE (PF) 0.25% 30 ML VIAL SQ ONE; -DEXAMETHASONE SOD PHOSPHATE 10 MG/ML 1 ML VIAL IV ONE; +GENTAMICIN 160 MG in SODIUM CHLORIDE 0.9% 100 ML IVPB PRN; -GLYCOPYRROLATE 0.2 MG/ML 2 ML VIAL ONE; -HYDROcodone/APAP 5-325MG 1 EACH TAB PO ONE; -HYDROcodone/APAP 5-325MG 1 EACH TAB PO PRN; -KETOROLAC 30 MG/ML 1 ML VIAL IVP ONE; -LACTATED RINGERS 1,000 ML IV SCH; -LIDOCAINE 1% 20 ML VIAL (10MG/ML) FOR IV START INTRADERMA ONE; -LIDOCAINE 1% 20 ML VIAL (10MG/ML) FOR IV START INTRADERMA PRN; -LIDOCAINE 1% INJ 10MG/ML (20 ML MDV) ONE; -MIDAZOLAM 2 MG/2 ML VIAL IV PRN; -MIDAZOLAM 2 MG/2 ML VIAL ONE; -NALOXONE 0.4 MG/ML 1 ML VIAL IV PRN; -NEOSTIGMINE 1 MG/ML 10 ML VIAL ONE; -PROPOFOL 10 MG/ML 20 ML VIAL IV ONE; -ROCURONIUM BROMIDE 10 MG/ML 10 ML VIAL IV ONE; -SCOPOLAMINE 1.5MG/72HR PATCH TRANSDERM ONE; -SUCCINYLCHOLINE CHLORIDE 100 MG/5 ML SYR IV ONE; -ceFAZolin IN SWFI 2 GM/20 ML SYRINGE IVP ONE; -fentaNYL (PF) 50 MCG/ML 2 ML AMP ONE
[2022-10-06] MEDS ORDERED: LACTATED RINGERS 1,000 ML IV ONE (09:50)
[2022-10-06] MEDS ORDERED: LIDOCAINE 1% (10MG/ML) FOR IV START INTRADERMA ONE (09:50)
[2022-10-06] MEDS ORDERED: ONDANSETRON 4 MG/2 ML VIAL ONE (09:56)
--- NOTE | 2022-10-06 10:00 | XR ---
EXAMINATION TYPE: XR KUB DATE OF EXAM: 10/06/2022 COMPARISON: 09/25/2022 HISTORY: Pain TECHNIQUE: One view abdominal series FINDINGS: The osseous structures are intact. The bowel gas pattern is nonspecific. There is a 4 mm calcification in the right UPJ. Punctate calcifications seen overlying the left kidne y by prior CT scan are not well seen on today's exam. There is a small calcification left hemipelvis measuring 3 mm which is indeterminate. IMPRESSION: 1. 4 mm right UVJ calcification.
[2022-10-06] MEDS ORDERED: DEXAMETHASONE SOD PHOSPHATE 4 MG/ML 1 ML VIAL IV ONE (10:06)
[2022-10-06] MEDS ORDERED: ONDANSETRON 4 MG/2 ML VIAL IVP ONE (10:06)
[2022-10-06 10:13] VITALS: RESP 16
[2022-10-06] MEDS ORDERED: MIDAZOLAM 2 MG/2 ML VIAL ONE (10:56)
[2022-10-06] MEDS ORDERED: fentaNYL (PF) 50 MCG/ML 2 ML AMP ONE (10:56)
[2022-10-06] MEDS ORDERED: LIDOCAINE 2% INJ 20 MG/ML (2 ML VIAL) ONE (10:56)
[2022-10-06] MEDS ORDERED: PROPOFOL 10 MG/ML 20 ML VIAL IV ONE (10:56)
[2022-10-06] MEDS ORDERED: SUCCINYLCHOLINE CHLORIDE 200 MG/10 ML VIAL IV ONE (10:56)
--- NOTE | 2022-10-06 11:42 | P.OP ---
Date of Procedure: 10/06/22 Preoperative Diagnosis: Right ureteral stone with obstruction Postoperative Diagnosis: Same Procedure(s) Performed: Cystoscopy, right ureteroscopy with laser lithotripsy and stone basketing Anesthesia: MELANIA Surgeon: Cordell Holloway Estimated Blood Loss (ml): 0 Pathology: other (Stone) Condition: stable Disposition: PACU Indications for Procedure: The patient is 37. She has a 4-5 mm distal ureteral stone causing pain due to obstruction. She wishes it out issues been attempting to get rid of it now for several weeks. She comes for right ureteroscopy laser lithotripsy. Stone is seen on KUB preoperatively Description of Procedure: Patient brought to the operative suite. Given general anesthesia. Placed lithotomy position with sterile prep and drape. Cystoscopy Foroblique lens and 21-Monegasque sheath identifies a normal urethra. She does have a cystocele. The ureters on the left is normal the right is somewhat edematous and bloody and. The stone is seen on fluoroscopy. The bladder is inspected and is normal. I passed the semirigid ureteroscope into the right ureter. The stone floats proximally the iliac vessels. With the 275 laser probe the stone was broken into tiny pieces and flushed and basketed out of the ureter. I inspect the ureter upon pullout and I do not feel the edema is enough to leave a stent. The bladder is drained. Stone fragments are collected. The patient is awakened and returned recovery room good condition. She tolerated the procedure well be discharged home upon recovery and found the office in one week.
[2022-10-06 11:50] VITALS: TEMP 97
[2022-10-06] MEDS ORDERED: HYDROmorphone 0.5 MG/0.5 ML SYRINGE IVP ONE (12:06)
--- NOTE | 2022-10-06 12:07 | FL ---
Intraoperative/procedural fluoroscopic services were provided. Total fluoroscopy time is 14 seconds w ith a total of 2 submitted images to PACS. Please see the operative/procedural note for further detai ls.
[2022-10-06] MEDS ORDERED: HYDROcodone/APAP 5-325MG 1 EACH TAB ONE (12:50)
[2022-10-06] MEDS ORDERED: HYDROcodone/APAP 5-325MG 1 EACH TAB PO ONE (12:51)
[2022-10-06 12:56] VITALS: PULSE 90
[2022-10-06 13:14] VITALS: BP 137/85
== END 2022-10-06 13:30 | disposition home or self-care (01) ==
LOC: OR 09:01
PROVIDERS: ATTEND Urology
DX: N20.1 Calculus of ureter (principal); E03.9 Hypothyroidism, unspecified; Z90.49 Acquired absence of other specified parts of digestive tract; Z87.891 Personal history of nicotine dependence; Z82.49 Family history of ischemic heart disease and other diseases of the circulatory system; Z83.3 Family history of diabetes mellitus; Z79.899 Other long term (current) drug therapy; Z79.890 Hormone replacement therapy
CPT/HCPCS: 81025; 82365; 74018; 52356; C1769; J2250; J0330; J1100; J2405; J3010; J1580; J0290; J2704; J1170; J2001

== ENCOUNTER → 2022-10-13 | Outpatient (CLI) | payer OTHER | END | disposition home or self-care (01) | LOC: LABWHC1 15:04 | PROVIDERS: ATTEND Internal Medicine Endocrinology, Diabetes & Metabolism | DX: E03.8 Other specified hypothyroidism (principal) | CPT/HCPCS: 36415; 84443 ==

== ENCOUNTER → 2023-01-10 | Outpatient (CLI) | payer OTHER ==
--- NOTE | 2023-01-11 08:37 | XR ---
EXAMINATION TYPE: XR spine complete AP and Lat DATE OF EXAM: 01/10/2023 COMPARISON: NONE HISTORY: Pain TECHNIQUE: AP and lateral views of the cervical, thoracic and lumbar spines FINDINGS: Cervical spine: Loss of normal cervical lordosis with mild disc space narrowing C5-C6. Very small yvon ateral cervical ribs. Thoracic spine: Pedicles are intact. Vertebral body heights and disc interspaces fairly well maintain ed with degenerative disc disease at T11-T12 and hypertrophic spurring anteriorly. Surgical clips inc identally noted in the gallbladder fossa. Lumbar spine: There is mild facet arthropathy L4-5 and L5-S1. Vertebral body heights and disc space m aintained. Degenerative changes in the lower thoracic spine with spurring. Pedicles are intact. IMPRESSION: IMPRESSION: 1. Mild degenerative disc disease C5-C6. 2. Moderate hypertrophic and degenerative changes T11-T12 3. Mild facet arthropathy L4-5 and L5-S1
== END | disposition home or self-care (01) ==
LOC: RADXRMAIN 15:02
PROVIDERS: ATTEND Student in an Organized Health Care Education/Training Program
DX: M50.322 Other cervical disc degeneration at C5-C6 level (principal); M47.814 Spondylosis without myelopathy or radiculopathy, thoracic region; M47.817 Spondylosis without myelopathy or radiculopathy, lumbosacral region
CPT/HCPCS: 72082

== ENCOUNTER 2023-01-20 16:42 | Emergency (ER) | payer OTHER ==
[2023-01-20 16:53] VITALS: TEMP 97.9
--- NOTE | 2023-01-20 17:23 | XR ---
EXAMINATION TYPE: XR chest 2V DATE OF EXAM: 01/20/2023 5:19 PM COMPARISON: Chest radiographs from 08/16/2020 TECHNIQUE: XR chest 2V Frontal and lateral views of the chest. CLINICAL INDICATION:Female, 37 years old with history of SOB; FINDINGS: Lungs/Pleura: There is no evidence of pleural effusion, focal consolidation, or pneumothorax. Pulmonary vascularity: Unremarkable. Heart/mediastinum: Cardiomediastinal silhouette is unremarkable. Musculoskeletal: No acute osseous pathology. IMPRESSION: No acute cardiopulmonary disease/process.
[2023-01-20] MEDS ORDERED: SODIUM CHLORIDE 0.9% 1,000 ML IV STA (17:30)
[2023-01-20] MEDS ORDERED: KETOROLAC 15 MG/ML 1 ML VIAL IVP STA (17:30)
[2023-01-20] MEDS ORDERED: ONDANSETRON 4 MG/2 ML VIAL IVP STA (17:30)
[2023-01-20 18:46] LABS: Basophils # (A) 0.1 k/uL (0-0.2); Basophils % (A) 0 %; Eosinophils # (A) 0.2 k/uL (0-0.7); Eosinophils % (A) 2 %; HCT 43.6 % (34.0-46.0); HGB 13.8 gm/dL (11.4-16.0); Lymphocytes # (A) 4.1 k/uL (1.0-4.8); Lymphocytes % (A) 30 %; MCH 28.1 pg (25.0-35.0); MCHC 31.6 g/dL (31.0-37.0); MCV 88.8 fL (80.0-100.0); Mean Platelet Volume 8.3; Monocytes # (A) 0.7 k/uL (0-1.0); Monocytes % (A) 5 %; Neutrophils # (A) 8.2 k/uL (1.3-7.7); Neutrophils % (A) 61 %; Platelet Count 328 k/uL (150-450); RBC 4.91 m/uL (3.80-5.40); RDW 13.1 % (11.5-15.5); WBC 13.4 k/uL (3.8-10.6)
[2023-01-20 19:01] LABS: ALT 28 U/L (4-34); AST 28 U/L (14-36); African American GFR (CKD) >90 (>60 ml/min/1.73 sqM); Albumin 4.3 g/dL (3.5-5.0); Alkaline Phosphatase 77 U/L (38-126); Anion Gap 10 mmol/L; Blood Urea Nitrogen 13 mg/dL (7-17); Calcium 9.4 mg/dL (8.4-10.2); Carbon Dioxide 24 mmol/L (22-30); Chloride 105 mmol/L (98-107); Glucose 104 mg/dL (74-99); Non-African American GFR(CKD) >90 (>60 ml/min/1.73 sqM); Potassium 4.4 mmol/L (3.5-5.1); Sodium 139 mmol/L (137-145); Total Bilirubin 0.6 mg/dL (0.2-1.3); Total Protein 8.1 g/dL (6.3-8.2)
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
[2023-01-20 21:17] LABS: INR 0.9 (<1.2); Prothrombin Time 9.8 sec (9.0-12.0)
[2023-01-20 21:21] LABS: Partial Thromboplastin Time 19.7 sec (22.0-30.0)
[2023-01-20 21:40] VITALS: BP 138/104; PULSE 86; RESP 18
== END 2023-01-20 21:39 | disposition home or self-care (01) ==
LOC: EC 16:42
DX: J06.9 Acute upper respiratory infection, unspecified (principal); E07.9 Disorder of thyroid, unspecified; Z79.890 Hormone replacement therapy; Z87.891 Personal history of nicotine dependence; Z90.49 Acquired absence of other specified parts of digestive tract; Z20.822 Contact with and (suspected) exposure to COVID-19
CPT/HCPCS: 36415; 93005; 85379; 80053; 84484; 85025; 85610; 85730; 87636; 71046; 99285; 96374; 96375; J2405; J1885

== ENCOUNTER → 2023-01-31 | Outpatient (CLI) | payer OTHER | END | disposition home or self-care (01) | LOC: LABWHC1 14:38 | PROVIDERS: ATTEND Internal Medicine Endocrinology, Diabetes & Metabolism | DX: E03.8 Other specified hypothyroidism (principal) | CPT/HCPCS: 36415; 84443 ==

== ENCOUNTER → 2023-05-02 | Outpatient (CLI) | payer OTHER | END | disposition home or self-care (01) | LOC: LABWHC1 14:33 | PROVIDERS: ATTEND Internal Medicine Endocrinology, Diabetes & Metabolism | DX: E03.8 Other specified hypothyroidism (principal) | CPT/HCPCS: 36415; 84443 ==

== ENCOUNTER → 2023-06-20 | Outpatient (CLI) | payer OTHER | END | disposition home or self-care (01) | LOC: LABWHC1 08:30 | PROVIDERS: ATTEND Obstetrics & Gynecology | DX: O00.90 Unspecified ectopic pregnancy without intrauterine pregnancy (principal); Z3A.00 Weeks of gestation of pregnancy not specified | CPT/HCPCS: 36415; 84702 ==

== ENCOUNTER → 2023-06-23 | Outpatient (CLI) | payer OTHER | END | disposition home or self-care (01) | LOC: LABWHC1 08:47 | PROVIDERS: ATTEND Obstetrics & Gynecology | DX: O00.90 Unspecified ectopic pregnancy without intrauterine pregnancy (principal); Z3A.00 Weeks of gestation of pregnancy not specified | CPT/HCPCS: 36415; 84702 ==

== ENCOUNTER → 2023-06-29 | Outpatient (CLI) | payer OTHER ==
[2023-06-29 19:40] LABS: Basophils # (A) 0.09 X 10*3/uL (0.00-0.10); Basophils % (A) 0.7 %; Eosinophils # (A) 0.25 X 10*3/uL (0.04-0.35); Eosinophils % (A) 2.1 %; HCT 42.6 % (37.2-46.3); HGB 13.2 d/dL (12.0-15.0); Lymphocytes # (A) 3.37 X 10*3/uL (0.90-5.00); Lymphocytes % (A) 27.6 %; MCH 28.1 pg (27.0-32.0); MCV 90.8 FL (80.0-97.0); Mean Platelet Volume 10.6 FL (9.5-12.2); Monocytes # (A) 1.12 X 10*3/uL (0.20-1.00); Monocytes % (A) 9.2 %; NRBC Per 100 WBC 0 X 10*3/uL (0.00-0.01); Neutrophils # (A) 7.33 X 10*3/uL (1.80-7.70); Neutrophils % (A) 60.2 %; Platelet Count 345 X 10*3/uL (140-440); RBC 4.69 X 10*6/uL (4.10-5.20); RDW 13.8 % (11.5-14.5); WBC 12.19 X 10*3/uL (4.50-10.00)
[2023-06-30 02:05] LABS: HCG,Quantitative Serum 7.5 mIU/mL (0.0-6.0)
== END | disposition home or self-care (01) ==
LOC: LABWHC1 14:40
PROVIDERS: ATTEND Internal Medicine Endocrinology, Diabetes & Metabolism
DX: O03.9 Complete or unspecified spontaneous abortion without complication (principal); E03.8 Other specified hypothyroidism; E55.9 Vitamin D deficiency, unspecified; E53.8 Deficiency of other specified B group vitamins; Z3A.00 Weeks of gestation of pregnancy not specified
CPT/HCPCS: 36415; 82306; 82607; 84443; 84702; 85025

== ENCOUNTER → 2023-07-06 | Outpatient (CLI) | payer OTHER ==
--- NOTE | 2023-07-06 15:34 | XR ---
EXAMINATION TYPE: XR KUB DATE OF EXAM: 07/06/2023 COMPARISON: NONE HISTORY: Bladder spasms TECHNIQUE: One view abdominal series FINDINGS: The osseous structures are intact. The bowel gas pattern is nonspecific. Mild arthropathy of the hip . SI joints patent. Surgical clips gallbladder fossa. Calcifications pelvis are likely vascular IMPRESSION: 1. Nonspecific abdomen.
== END | disposition home or self-care (01) ==
LOC: RADXRMAIN 14:46
PROVIDERS: ATTEND Urology
DX: O00.90 Unspecified ectopic pregnancy without intrauterine pregnancy (principal); N20.0 Calculus of kidney; N32.89 Other specified disorders of bladder
CPT/HCPCS: 74018; 84702

== ENCOUNTER → 2023-10-31 | Outpatient (CLI) | payer OTHER | END | disposition home or self-care (01) | LOC: LABWHC1 14:47 | PROVIDERS: ATTEND Internal Medicine Endocrinology, Diabetes & Metabolism | DX: E03.8 Other specified hypothyroidism (principal) | CPT/HCPCS: 36415; 84443 ==

== ENCOUNTER → 2024-01-30 | Outpatient (CLI) | payer OTHER ==
[2024-01-31 03:04] LABS: HCT 40.7 % (37.2-46.3); HGB 12.8 g/dL (12.0-15.0); MCH 27.9 pg (27.0-32.0); MCHC 31.4 g/dL (32.0-37.0); MCV 88.7 FL (80.0-97.0); Mean Platelet Volume 10.9 FL (9.5-12.2); NRBC Per 100 WBC 0 X 10*3/uL (0.00-0.01); Platelet Count 309 X 10*3/uL (140-440); RBC 4.59 X 10*6/uL (4.10-5.20); RDW 13.2 % (11.5-14.5); WBC 11.92 X 10*3/uL (4.50-10.00)
== END | disposition home or self-care (01) ==
LOC: LABWHC1 14:39
PROVIDERS: ATTEND Internal Medicine Endocrinology, Diabetes & Metabolism
DX: E03.8 Other specified hypothyroidism (principal); E55.9 Vitamin D deficiency, unspecified; R53.83 Other fatigue
CPT/HCPCS: 36415; 82306; 84443; 85027

== ENCOUNTER → 2024-02-08 | Outpatient (CLI) | payer OTHER ==
[2024-02-08 16:25] VITALS: BP 161/117; PULSE 94; RESP 18; TEMP 97.9
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
== END ==
LOC: 3 N SLEEP 15:38
PROVIDERS: ATTEND Internal Medicine
DX: G47.33 Obstructive sleep apnea (adult) (pediatric) (principal); G47.10 Hypersomnia, unspecified; E66.01 Morbid (severe) obesity due to excess calories; E03.9 Hypothyroidism, unspecified; Z90.49 Acquired absence of other specified parts of digestive tract; Z87.442 Personal history of urinary calculi; Z68.43 Body mass index [BMI] 50.0-59.9, adult; Z79.890 Hormone replacement therapy; Z87.891 Personal history of nicotine dependence
CPT/HCPCS: 99211

== ENCOUNTER → 2024-02-22 | Outpatient (CLI) | payer OTHER | END | disposition home or self-care (01) | LOC: LABWHC1 10:06 | PROVIDERS: ATTEND Obstetrics & Gynecology | DX: O00.90 Unspecified ectopic pregnancy without intrauterine pregnancy (principal); Z3A.00 Weeks of gestation of pregnancy not specified | CPT/HCPCS: 36415; 84702 ==

== ENCOUNTER 2024-02-26 19:37 | Outpatient (CLI) | payer OTHER ==
--- NOTE | 2024-03-01 10:49 | P.PCN ---
Description of Procedure: POLYSOMNOGRAPHY REPORT PROCEDURE(S)/DATE(S): Polysomnography 02/26/2024 CLINICAL: Patient has been seen in the sleep center for evaluation of obstructive sleep apnea-hypopnea syndrome. Please see my consultation. Sleep study has been done for evaluation of patient breathing during the sleep. PROCEDURE: The standard montage for clinical polysomnography included the electroencephalogram, the electrooculogram, the mentalis surface electromyography and Lead II cardiography. The respiratory battery consisted of measurements of nasal/buccal air flow, pressure transducer measurements from nose, thoracic and/or abdominal effort and intercostal surface electromyography. Video monitoring has been done to check for any parasomnia events. Nocturnal oxyhemoglobin saturations were obtained by finger oximetry. Step-nichols titration with positive airway pressure was utilized to control the respiratory events, if necessary. RESULTS: During the diagnostic sleep study sleep efficiency was normal 91.3%. Latency to sleep onset was normal at 12.5 min. Sleep architecture showed stage NI was increased to 20.2%, Delta sleep was extremely short 1.1%, REM sleep was short 14.3%. Respiratory channel showed 2 obstructive apneas, 2 mixed apneas, 0 central apneas, 728 hypopneas with lowest oxygen level 57%. Total apnea hypopnea index was 119.3. Heart rate was in the range between 44 and 71, average 54. EMG showed 0 periodic limb movements per hour with 0 micro-arousals per hour. IMPRESSIONS: 1. Extremely severe obstructive sleep apnea hypopnea syndrome. 2. No significant periodic limb movements have been documented. Please see other impressions from consultation PLAN: 1. The patient will have PAP titration for correction of respiratory abnormalities during the sleep. 2. Aggressive losing weight program. 3. Sleep hygiene with regular time in bed for at least 7-1/2 hours. 4. No driving if feeling sleepiness. Thank you very much for allowing me to participate in the management of your patient. Sincerely, Kris Bejarano MD, PhD, FAASM. Diplomat of [place] [employer], Sleep Medicine Board by [place] [employer] Fudger of [facility] [place]
== END 2024-02-27 04:20 | disposition home or self-care (01) ==
LOC: 3 N SLEEP 19:37
PROVIDERS: ATTEND Internal Medicine
DX: G47.33 Obstructive sleep apnea (adult) (pediatric) (principal); Z87.891 Personal history of nicotine dependence
CPT/HCPCS: 95810

== ENCOUNTER 2024-03-12 19:40 | Outpatient (CLI) | payer OTHER ==
--- NOTE | 2024-03-15 11:36 | P.PCN ---
Description of Procedure: CLINICAL: Titration with positive air pressure has been done for correction of respiratory abnormalities during sleep. DESCRIPTION OF PROCEDURE: The standard montage for clinical polysomnography included the electroencephalogram, the electrocardiogram, the mentalis surface electromyography and Lead II cardiography. The respiratory battery consisted of measurements of nasal /buccal air flow, pressure transducer measurements from the nose, thoracic and /or abdominal effort and intercostal surface electromyography. Video monitoring has been done to check for any parasomnia events. Nocturnal oxyhemoglobin saturations were obtained by finger oximetry. Step-nichols titration with positive airway pressure was utilized to control respiratory events. Raw data of sleep recording has been reviewed and is adequate. RESULTS: Sleep efficiency was normal 92.0%. Latency to sleep onset was normal 8.5 minutes.]. Sleep architecture showed stage N1 was extremely short 1.1%, Delta sleep was increased to 30.6%, REM sleep was increased to 38.8%. Heart rate was minimum 70 BPM, maximum 86 BPM, average 78 BPM. EMG showed 0 periodic limb movements per hour with 0 micriarousals per hour. PAP titration have been done with CPAP up to the pressure 20 cm H2O. Patient had problems with CPAP, switched to BPAP. BPAP titrated up to 24/20 cm H2O. The best results were at the pressure 24/20 cm H2O. Apnea hypopnea index reduced to 3.1. IMPRESSION: 1. Extremely severe obstructive sleep apnea hypopnea syndrome with apnea hypopnea index 119.3 and oxygen saturation to 57% mostly on controle with high level of BPAP treatment. 2. No significant periodic limb movements have been documented. Please see other impressions from consultation. PLAN: 1. The patient will have treatment with positive air pressure equipment with the level of pressure AutoBPAP with maximal inspiratory pressure 24 and minimal expiratory pressure 10 cm H2O and should use it every night for the whole night. 2. Watching and losing weight. 3. Sleep hygiene with regular time in bed for at least 8 hours. 4. No driving if feeling any sleepiness. 5. I will see the patient for follow up visit to explain the results of the test, recommendations, check compliance with treatment and make any necessary adjustment related to mask fitting, pressure and humidification. Thank you very much for allowing me to participate in the management of your patient. Sincerely, Kris Bejarano MD, PhD, FAASM Diplomat of [place] [employer] Specialties Sleep Medicine Board of [place] Board of Internal Medicine Integration Architect of [facility] [place] cc: Nam Murray MD
== END 2024-03-13 04:25 | disposition home or self-care (01) ==
LOC: 3 N SLEEP 19:40
PROVIDERS: ATTEND Internal Medicine
DX: G47.33 Obstructive sleep apnea (adult) (pediatric) (principal); G47.36 Sleep related hypoventilation in conditions classified elsewhere; Z87.891 Personal history of nicotine dependence
CPT/HCPCS: 95811

== ENCOUNTER → 2024-06-08 | Outpatient (CLI) | payer OTHER ==
--- NOTE | 2024-06-08 10:59 | XR ---
EXAMINATION TYPE: XR KUB DATE OF EXAM: 06/08/2024 10:42 AM CLINICAL INDICATION: Female, 38 years old with history of N20.0 Calculus Kidney; [facility] COMPARISON: None. TECHNIQUE: One radiographic view of the abdomen was obtained. FINDINGS: The bowel gas pattern is nonspecific without dilated loops of small or large bowel. . Fecal material and gas are demonstrated throughout the colon and rectum. There is no evidence for organomegaly or pneumoperitoneum. The osseous structures are intact. No ab normal calcifications are present. Right upper quadrant correlate cystectomy clips. IMPRESSION: 1. No renal stones definitively visualized. Consider CT renal stone protocol. 2. Nonspecific bowel gas pattern without radiographic evidence for acute process. [facility], , 06/08/2024 10:57 AM
== END | disposition home or self-care (01) ==
LOC: RADXRMAIN 10:27
PROVIDERS: ATTEND Urology
DX: N20.0 Calculus of kidney (principal)
CPT/HCPCS: 74018

== ENCOUNTER → 2024-08-02 | Outpatient (CLI) | payer OTHER ==
--- NOTE | 2024-08-05 19:14 | CT ---
EXAMINATION TYPE: CT abdomen pelvis wo con DATE OF EXAM: 08/02/2024 8:15 AM COMPARISON: None. CLINICAL INDICATION: Female, 39 years old with history of N20.0 CALCULUS OF KIDNEY, bilateral flank p ain TECHNIQUE: Axial images were obtained from above the diaphragm to the pubic rami in the axial plane a t 5 mm thick sections. Reconstructed images are reviewed on the computer in the coronal plane. CONTRAST: mL of . Study performed without Oral Contrast DLP: 3046.2 mGycm, Automated exposure control for dose reduction was used. FINDINGS: Limited CT sections are obtained the lung bases. The lung bases are clear. CT ABDOMEN: Liver: Normal Spleen: Normal Pancreas: Normal Adrenal glands: The adrenal glands are normal. Gallbladder: Surgically absent Kidneys: No masses are evident. No hydronephrosis is present. No cysts are present. No renal stone s are evident. Aorta: Normal Inferior vena cava: Normal. CT PELVIS: There is an anterior periumbilical hernia containing mesenteric fat. A continuous 2.2 cm. Loops of bowel within the abdomen and pelvis are normal. Studies is without contrast limiting bow el evaluation. Appendix: Normal as visualized Urinary bladder: Normal. Genitourinary structures: Uterus and adnexa appear normal Osseous structures: No suspicious lytic or sclerotic lesions. IMPRESSION: 1. Periumbilical hernia containing mesenteric fat. No loops of bowel are involved. 2. No suspicious renal or ureteral stones identified [facility], , 08/05/2024 7:11 PM
== END | disposition home or self-care (01) ==
LOC: RADCTMAIN 07:51
PROVIDERS: ATTEND Urology
DX: N20.0 Calculus of kidney (principal); K42.9 Umbilical hernia without obstruction or gangrene
CPT/HCPCS: 74176

== ENCOUNTER → 2024-08-14 | Outpatient (CLI) | payer OTHER | END | disposition home or self-care (01) | LOC: LABWHC1 14:33 | PROVIDERS: ATTEND Internal Medicine Endocrinology, Diabetes & Metabolism | DX: E03.8 Other specified hypothyroidism (principal) | CPT/HCPCS: 36415; 84443 ==

== ENCOUNTER → 2024-10-10 | Outpatient (CLI) | payer OTHER ==
--- NOTE | 2024-10-10 16:19 | XR ---
EXAMINATION TYPE: XR KUB DATE OF EXAM: 10/10/2024 4:15 PM COMPARISON: 06/08/2024 CLINICAL INDICATION: Female, 39 years old with history of R10.9; [facility] TECHNIQUE: One radiographic view of the abdomen was obtained. FINDINGS: The bowel gas pattern is nonspecific without dilated loops of small or large bowel. . Fecal material and gas are demonstrated throughout the colon and rectum. There is no evidence for organome ale or pneumoperitoneum. No acute osseous process. No abnormal calcifications are present. Right u pper quadrant cholecystectomy clips. IMPRESSION: Nonspecific bowel gas pattern without radiographic evidence for acute process. [facility], , 10/10/2024 4:16 PM
== END | disposition home or self-care (01) ==
LOC: RADXRMAIN 15:51
PROVIDERS: ATTEND Urology
DX: R10.9 Unspecified abdominal pain (principal)
CPT/HCPCS: 74018

== ENCOUNTER → 2024-11-14 | Outpatient (CLI) | payer OTHER | END | disposition home or self-care (01) | LOC: LABWHC1 14:49 | PROVIDERS: ATTEND Internal Medicine Endocrinology, Diabetes & Metabolism | DX: E03.8 Other specified hypothyroidism (principal) | CPT/HCPCS: 36415; 84443 ==

== ENCOUNTER → 2025-02-22 | Outpatient (CLI) | payer OTHER ==
--- NOTE | 2025-02-25 07:05 | MM ---
Reason for Exam: Screening (asymptomatic). Baseline mammogram. Patient History: Menarche at age 11. First Full-Term at age 30. Late child-bearing (after 29). Paternal aunt had ovarian cancer, age 70. Last menstrual period: 01/31/2025 Risk Values: Hoa 5 year model risk: 0.8%. NCI Lifetime model risk: 13.6%. Prior Study Comparison: Patient's first Mammogram. Tissue Density: The breasts are heterogeneously dense, which may obscure small masses. Findings: Analyzed By CAD. There is no suspicious group of microcalcifications or suspicious mass in either breast. Overall Assessment: Negative, BI-RAD 1 Management: Screening Mammogram of both breasts in 1 year. . Patient should continue monthly self-breast exams. A clinical breast exam by your physician is recommended on an annual basis. This exam should not preclude additional follow-up of suspicious palpable abnormalities. Note on Hoa scores and lifetime risk: 1. A Hoa score greater than 3% is considered moderate risk. If this is the case, consider specialist referral to assess eligibility for a risk reducing agent. 2. If overall lifetime risk for the development of breast cancer is 20% or higher, the patient may qualify for future screening with alternating mammogram and breast MRI. [facility], , 02/25/2025 7:02 AM. Electronically signed and approved by: Franco Barnes M.D.
== END | disposition home or self-care (01) ==
LOC: RADMAMWWP 16:28
PROVIDERS: ATTEND Family Medicine
DX: Z12.31 Encounter for screening mammogram for malignant neoplasm of breast (principal); R92.333 Mammographic heterogeneous density, bilateral breasts
CPT/HCPCS: 77063; 77067

== ENCOUNTER → 2025-03-20 | Outpatient (CLI) | payer OTHER | END | disposition home or self-care (01) | LOC: LABWHC1 16:16 | PROVIDERS: ATTEND Internal Medicine Endocrinology, Diabetes & Metabolism | DX: E03.8 Other specified hypothyroidism (principal); E55.9 Vitamin D deficiency, unspecified | CPT/HCPCS: 36415; 82306; 84443 ==